=== PATIENT | female | born 1960 | race African-American/Black ===

== ENCOUNTER 2017-07-21 17:54 | Emergency (ER) | payer OTHER, MEDICAID ==
[~2017-07-21] VITALS: Ht 175.3 cm; Wt 121.6 kg
[2017-07-21 18:22] VITALS: BP 129/75
== END 2017-07-22 | disposition left against medical advice (07) ==
LOC: ER 18:01
DX: H92.03 Otalgia, bilateral (principal); Z53.21 Procedure and treatment not carried out due to patient leaving prior to being seen by health care provider